=== PATIENT | male | born 1985 | race Caucasian/White ===

== ENCOUNTER 2023-01-08 07:59 | Inpatient (IN) | payer SELFPAY ==
[2023-01-08 08:00] VITALS: BMI 28.1
[2023-01-08 08:05] VITALS: BP 170/115; PULSE 98; RESP 16; TEMP 37.1; O2SAT 98
--- NOTE | 2023-01-08 08:24 | ED.C_ITS ---
Documented by User: ANUP Covarrubias 01/08/23 09:22 HPI - Psych General: Chief Complaint: Psychiatric Symptoms Stated Complaint: MHE Time Seen by Provider: 01/08/23 08:01 Source: patient and EMS Mode of arrival: ambulatory Limitations: no limitations History of Present Illness: Patient is a 37-year-old male with history of ADHD, PTSD, and generalized anxiety disorder who presents to the emergency department via EMS due to acute psychosis onset today. Per EMS, patient is traveling from [place] to [facility] to see his /ex-. Patient was stopping for gas in [place], where he states he got paranoid believing that the gas being pumped into his truck was diesel, and that this was a result of the feds following him for some time. He states that they were doing this in order for his truck to stop working so that he could not get to [place]. He caused such a scene at the gas station over this that the police were contacted. He reportedly has also been getting anxious when he sees vehicles colored white, as he thinks they are hunting him down. When talking to the patient, he tells me that he has a heightened sense of hearing where he can hear people from very far away. He states that these voices are real, and that they are not hallucinations and are not telling him to hurt himself or others. He currently denies any suicidal or homicidal ideations. He tells me that his ADHD has been out of control for the past couple of months, as he has been off of his stimulant medication. He reports history of being hospitalized in a psychiatric facility, though he will not tell me where or when the last time he was hospitalized. When asked why he is traveling to [place] to see his , he states that he also cannot tell me this and that this is something he will only discuss with satellite tv technician installer. He says he smokes a significant amount of cigarettes daily, but denies any use of recreational drugs or alcohol as he states they make him feel weird. He says he has experimented in the past with street drugs such as meth to treat his anxiety when he has been out a prescription medication. He tells me that all he needs is a sufficient supply of medications to get him to [place], and becomes agitated when asked about psychiatric hospitalization. He denies any chest pain, palpitations, self-injurious behavior, or any other symptoms at this time. complaint: other (Acute psychosis) Duration: constant History of same: Yes Relieving factors: medication Context: not taking psychiatric medications Associated symptoms: Reports delusions; Deny auditory hallucinations, visual hallucinations, depression, homicidal ideation or suicidal ideation Treatments prior to arrival: none Review of Systems Const: Denies: fever(s) or chills Card: Denies: chest pain, palpitations, lightheadedness or syncope Resp: Denies: dyspnea GI: Denies: abdominal pain, nausea, vomiting or diarrhea Skin/Breast: Denies: rash Neuro: Denies: headache(s) Psych: Reports: paranoia and other (Psychosis); Denies: anxiety, depression, visual hallucinations, auditory hallucinations, suicidal ideation or homicidal ideation Physical Exam Const: COMMON NORMALS: no acute distress, patient oriented x3, no limitations, alert and well nourished GENERAL APPEARANCE: cooperative and well kempt ORIENTATION/CONSCIOUSNESS: Yes awake, Yes oriented to person, Yes oriented to place and Yes oriented to time OTHER: paranoia Resp: COMMON NORMALS: normal respiratory effort and clear to auscultation bilaterally AUSCULTATION: clear to auscultation bilaterally Cardio: COMMON NORMALS: regular rate and regular rhythm RATE: regular rate RHYTHM: regular rhythm Neuro: NITIN COMA SCALE: document GCS findings [place] coma scale eye opening: Spontaneous [place] coma scale verbal response: Orientated [place] coma scale motor response: Obey commands [place] coma scale total score: 15 COMMON NORMALS: patient oriented x3 SENSORIUM/ORIENTATION: Yes alert, Yes oriented to person, Yes oriented to place and Yes oriented to time Psych: COMMON NORMALS: mental status grossly normal, cooperative, normal affect, speech normal, activity/motor behavior normal, denies homicidal ideation and denies suicidal ideation APPEARANCE: Yes grossly normal and Yes well kempt ATTITUDE: Yes agitated ACTIVITY/MOTOR BEHAVIOR: Yes appropriate eye contact and No psychomotor agitation SPEECH: Yes normal speech MOOD & AFFECT: Yes irritable THOUGHT PROCESS: Flight of ideas present THOUGHT CONTENT: Yes delusions Delusional thought content details: persecutory ATTENTION/CONCENTRATION: Yes attention grossly intact and Yes concentration grossly intact MEMORY/COGNITION: Yes memory grossly intact and Yes cognition grossly intact INSIGHT: Poor insight present (Psych) JUDGEMENT: questionable Course Consultations: Consultation #1: Dr. Beatty-recommended hospitalization as patient is acting on his delusions and could potentially be a threat to others because of this Vital Signs: Vital signs: Vital Signs Temperature 98.8 F 01/08/23 08:05 Pulse Rate 98 01/08/23 08:05 Respiratory Rate 16 01/08/23 08:05 Blood Pressure 170/115 01/08/23 08:05 Pulse Oximetry 98 01/08/23 08:05 Oxygen Delivery Me thod Room Air 01/08/23 08:05 MDM - Psych Medical Decision Making Patient is a 37-year-old male who presents to ED today after being brought by police for concerns of acute psychosis. On examination patient is clearly psychotic and paranoid. He is acting on his active delusions. At this time patient was placed on a 96-hour hold. He does have a service dog with him so we are speaking to [facility] on policy in regards to this. I have spoken to Dr. Beatty who recommends hospitalization. Dr. Cabrera aware of patient and has signed 96-hour hold paperwork. He will be an admit to NPU. Lab Data 01/08/23 08:39 01/08/23 08:39 Laboratory Results WBC 10.8 10^3/uL (4.0-10.0) H 01/08/23 08:39 RBC 4.65 10^6/uL (4.1-5.3) 01/08/23 08:39 Hgb 14.6 g/dL (11.7-16.6) 01/08/23 08:39 Hct 45.3 % (42.0-52.0) 01/08/23 08:39 MCV 97.4 fl (80-94) H 01/08/23 08:39 MCH 31.4 pg (28.0-34.0) 01/08/23 08:39 MCHC 32.2 g/dL (30.0-36.0) 01/08/23 08:39 RDW 14.1 % (12.1-15.1) 01/08/23 08:39 Plt Count 256 10^3/cmm (130-400) 01/08/23 08:39 MPV 11.6 fL (7.4-10.4) H 01/08/23 08:39 Neut % (Auto) 70.6 % 01/08/23 08:39 Lymph % (Auto) 20.1 % 01/08/23 08:39 [place] % (Auto) 7.7 % 01/08/23 08:39 Eos % (Auto) 0.6 % 01/08/23 08:39 Baso % (Auto) 0.7 % 01/08/23 08:39 Neut # (Auto) 7.65 10^3/uL (1.8-7.7) 01/08/23 08:39 Lymph # (Auto) 2.2 10^3/uL (0.8-4.8) 01/08/23 08:39 [place] # (Auto) 0.8 10^3/uL (0.2-0.9) 01/08/23 08:39 Eos # (Auto) 0.1 10^3/uL (0.0-0.8) 01/08/23 08:39 Baso # (Auto) 0.1 10^3/uL (0.0-0.1) 01/08/23 08:39 Nucleated RBC % (auto) 0 % 01/08/23 08:39 Nucleated RBCs # 0.0 /100WBC 01/08/23 08:39 Sodium 140 mmol/L (136-145) 01/08/23 08:39 Potassium 4.2 mmol/L (3.5-5.1) 01/08/23 08:39 Chloride 100 mmol/L (98-107) 01/08/23 08:39 Carbon Dioxide 27 mmol/L (22-29) 01/08/23 08:39 Anion Gap 17.2 (5-19) 01/08/23 08:39 BUN 7 mg/dL (6-20) 01/08/23 08:39 Creatinine 1.0 mg/dL (0.7-1.2) 01/08/23 08:39 GFR Calculation 83.6 mL/min (90-130) L 01/08/23 08:39 Glucose 105 mg/dL (65-115) 01/08/23 08:39 Calculated Osmolality 288 mOsm/kg (285-295) 01/08/23 08:39 Calcium 8.6 mg/dL (8.5-10.5) 01/08/23 08:39 Total Bilirubin 0.4 mg/dL (0.15-1.2) 01/08/23 08:39 AST 15 U/L (0-40) 01/08/23 08:39 ALT 15 U/L (0-41) 01/08/23 08:39 Alkaline Phosphatase 118 U/L (40-130) 01/08/23 08:39 Total Protein 7.2 g/dL (6.6-8.7) 01/08/23 08:39 Albumin 4.8 g/dL (3.5-5.2) 01/08/23 08:39 Globulin 2.4 g/dL (1.3-4.6) 01/08/23 08:39 Salicylates < 0.3 mg/dL (3-10) L 01/08/23 08:39 Acetaminophen < 5.0 ug/mL (10-30) L 01/08/23 08:39 Ethyl Alcohol < 10 mg/dL (0-10) 01/08/23 08:39 Discharge Plan Discharge Patient Disposition: Admitted As Inpatient Clinical Impression: Acute psychosis, Paranoia Condition: Stable Coding Level of Care Code ED Portfolio Administrator for Chg Fwd Documented by User: Gennaro Cabrera DO 01/08/23 10:47 HPI - Psych General: Chief Complaint: Psychiatric Symptoms Stated Complaint: MHE Time Seen by Provider: 01/08/23 08:01 Physical Exam Neuro: NITIN COMA SCALE: document GCS findings [place] coma scale total score: 15 Course Vital Signs: Vital signs: Vital Signs Temperature 98.8 F 01/08/23 08:05 Pulse Rate 98 01/08/23 08:05 Respiratory Rate 16 01/08/23 08:05 Blood Pressure 170/115 01/08/23 08:05 Pulse Oximetry 98 01/08/23 08:05 Oxygen Delivery Me thod Room Air 01/08/23 08:05 MDM - Psych Medical Decision Making Patient is a 37-year-old male who presents to ED today after being brought by police for concerns of acute psychosis. On examination patient is clearly psychotic and paranoid. He is acting on his active delusions. At this time anup austin was placed on a 96-hour hold. He does have a service dog with him so we are speaking to [facility] on policy in regards to this. I have spoken to Dr. Beatty who recommends hospitalization. Dr. Cabrera aware of patient and has signed 96-hour hold paperwork. He will be an admit to NPU. Patient seen and evaluated he is mildly agitated but easily redirected. We did give him a dose of Ativan which seemed to help although he still is resistant to changing out to scrub. Discussed with Dr. Beatty as well as administration regarding admission location due to the fact that he has a service dog with him and ultimately was decided to place him in the ICU where he can be monitored. Spencer arreguin is on a 96-hour hold. Orders written. Medical Records I reviewed the patient's medical records. Lab Data I reviewed the patient's lab results. 01/08/23 08:39 01/08/23 08:39 Laboratory Results WBC 10.8 10^3/uL (4.0-10.0) H 01/08/23 08:39 RBC 4.65 10^6/uL (4.1-5.3) 01/08/23 08:39 Hgb 14.6 g/dL (11.7-16.6) 01/08/23 08:39 Hct 45.3 % (42.0-52.0) 01/08/23 08:39 MCV 97.4 fl (80-94) H 01/08/23 08:39 MCH 31.4 pg (28.0-34.0) 01/08/23 08:39 MCHC 32.2 g/dL (30.0-36.0) 01/08/23 08:39 RDW 14.1 % (12.1-15.1) 01/08/23 08:39 Plt Count 256 10^3/cmm (130-400) 01/08/23 08:39 MPV 11.6 fL (7.4-10.4) H 01/08/23 08:39 Neut % (Auto) 70.6 % 01/08/23 08:39 Lymph % (Auto) 20.1 % 01/08/23 08:39 [place] % (Auto) 7.7 % 01/08/23 08:39 Eos % (Auto) 0.6 % 01/08/23 08:39 Baso % (Auto) 0.7 % 01/08/23 08:39 Neut # (Auto) 7.65 10^3/uL (1.8-7.7) 01/08/23 08:39 Lymph # (Auto) 2.2 10^3/uL (0.8-4.8) 01/08/23 08:39 [place] # (Auto) 0.8 10^3/uL (0.2-0.9) 01/08/23 08:39 Eos # (Auto) 0.1 10^3/uL (0.0-0.8) 01/08/23 08:39 Baso # (Auto) 0.1 10^3/uL (0.0-0.1) 01/08/23 08:39 Nucleated RBC % (auto) 0 % 01/08/23 08:39 Nucleated RBCs # 0.0 /100WBC 01/08/23 08:39 Sodium 140 mmol/L (136-145) 01/08/23 08:39 Potassium 4.2 mmol/L (3.5-5.1) 01/08/23 08:39 Chloride 100 mmol/L (98-107) 01/08/23 08:39 Carbon Dioxide 27 mmol/L (22-29) 01/08/23 08:39 Anion Gap 17.2 (5-19) 01/08/23 08:39 BUN 7 mg/dL (6-20) 01/08/23 08:39 Creatinine 1.0 mg/dL (0.7-1.2) 01/08/23 08:39 GFR Calculation 83.6 mL/min (90-130) L 01/08/23 08:39 Glucose 105 mg/dL (65-115) 01/08/23 08:39 Calculated Osmolality 288 mOsm/kg (285-295) 01/08/23 08:39 Calcium 8.6 mg/dL (8.5-10.5) 01/08/23 08:39 Total Bilirubin 0.4 mg/dL (0.15-1.2) 01/08/23 08:39 AST 15 U/L (0-40) 01/08/23 08:39 ALT 15 U/L (0-41) 01/08/23 08:39 Alkaline Phosphatase 118 U/L (40-130) 01/08/23 08:39 Total Protein 7.2 g/dL (6.6-8.7) 01/08/23 08:39 Albumin 4.8 g/dL (3.5-5.2) 01/08/23 08:39 Globulin 2.4 g/dL (1.3-4.6) 01/08/23 08:39 Salicylates < 0.3 mg/dL (3-10) L 01/08/23 08:39 Acetaminophen < 5.0 ug/mL (10-30) L 01/08/23 08:39 Ethyl Alcohol < 10 mg/dL (0-10) 01/08/23 08:39 Discharge Plan Discharge Patient Disposition: Admitted As Inpatient Clinical Impression: Acute psychosis, Paranoia Condition: Stable Coding Level of Care Code ED Portfolio Administrator for Fareed Alejandro
[2023-01-08 08:48] LABS: Basophils # 0.1 10^3/uL (0.0-0.1); Basophils % 0.7 %; Eosinophils # 0.1 10^3/uL (0.0-0.8); Eosinophils % 0.6 %; Hematocrit 45.3 % (42.0-52.0); Hemoglobin 14.6 g/dL (11.7-16.6); Lymphocytes # 2.2 10^3/uL (0.8-4.8); Lymphocytes % 20.1 %; Mean Corpuscular HGB Conc 32.2 g/dL (30.0-36.0); Mean Corpuscular Hemoglobin 31.4 pg (28.0-34.0); Mean Corpuscular Volume 97.4 fl (80-94); Mean Platelet Volume 11.6 fL (7.4-10.4); Monocytes # 0.8 10^3/uL (0.2-0.9); Monocytes % 7.7 %; Neutrophils # 7.65 10^3/uL (1.8-7.7); Neutrophils % 70.6 %; Nucleated Red Blood Cells % 0 %; Platelet Count 256 10^3/cmm (130-400); Red Blood Count 4.65 10^6/uL (4.1-5.3); Red Cell Distribution Width 14.1 % (12.1-15.1); White Blood Count 10.8 10^3/uL (4.0-10.0)
[2023-01-08 09:11] LABS: Alanine Aminotransferase 15 U/L (0-41); Albumin Level 4.8 g/dL (3.5-5.2); Alkaline Phosphatase 118 U/L (40-130); Anion Gap 17.2 (5-19); Aspartate Amino Transferase 15 U/L (0-40); Blood Urea Nitrogen 7 mg/dL (6-20); Calcium 8.6 mg/dL (8.5-10.5); Carbon Dioxide 27 mmol/L (22-29); Chloride 100 mmol/L (98-107); Globulin 2.4 g/dL (1.3-4.6); Glomerular Filtration Rate 83.6 mL/min (90-130); Glucose 105 mg/dL (65-115); Osmolality Calculated 288 mOsm/kg (285-295); Potassium 4.2 mmol/L (3.5-5.1); Sodium 140 mmol/L (136-145); Total Bilirubin 0.4 mg/dL (0.15-1.2); Total Protein 7.2 g/dL (6.6-8.7)
[2023-01-08 09:14] LABS: Acetaminophen < 5.0 ug/mL (10-30); Alcohol Level < 10 mg/dL (0-10); Salicylate < 0.3 mg/dL (3-10)
[2023-01-08] MEDS: LORazepam 2 mg Tablet PO (09:22)
[2023-01-08 11:11] VITALS: BP 128/74; PULSE 83; RESP 18; O2SAT 93
--- NOTE | 2023-01-08 11:12 | PC.NURSE ---
PT NOTED TO SUDDENLY BE SLEEPING IN BED. PT NOT ALERTLY RESPONDING TO VERBAL/PHYSICAL STIMUI. V/S OBTAINED. PT UNDRESSED TO PLACE IN SCRUBS. PT AROUSED.
--- NOTE | 2023-01-08 13:25 | PC.NURSE ---
This nurse expressed concern for safety of staff and patient to nurse Admin prior to receiving patient. patient arrived from ED approximately 1240. Patient is now strongly requesting to leave and needing anxiety meds, Dr. Beatty notified
--- NOTE | 2023-01-08 13:29 | PC.NURSE ---
patient refusing telemetry and VS
[2023-01-08 13:30] VITALS: BP 129/79; PULSE 96; O2SAT 93
[2023-01-08] MEDS: nicotine 2 mg Gum 4 MG BUCCAL ×4 (14:35→23:55)
--- NOTE | 2023-01-08 14:36 | PC.NURSE ---
Patient refuses to wear name band
--- NOTE | 2023-01-08 15:29 | PC.NURSE ---
Patient requested to take dog outside. Security came to bedside. patient threatening to lexy hospital and staff due to being held against his will, and that he will leave because he doesn't want to get violent but will if needed. attempted to contact HCP
--- NOTE | 2023-01-08 15:37 | PC.NURSE ---
Patient demanded law enforcement be called, security made the call, security and law enforcement with patient at this time
--- NOTE | 2023-01-08 16:04 | PC.NURSE ---
patient off unit with security and law enforcement
--- NOTE | 2023-01-08 17:29 | W.PM.NPUH&PS ---
Providers/Chief Complaint Admitting Physician: Thang Beatty MD Chief Complaint: MHE HPI NPU History of Present Illness Laz Villegas is a 37 year old male who presented to the emergency department with the following report: Chief Complaint: Psychiatric Symptoms Stated Complaint: MHE Time Seen by Provider: 01/08/23 08:01 Source: patient and EMS Mode of arrival: ambulatory Limitations: no limitations History of Present Illness: Patient is a 37-year-old male with history of ADHD, PTSD, and generalized anxiety disorder who presents to the emergency department via EMS due to acute psychosis onset today. Per EMS, patient is traveling from [place] to [facility] to see his /ex-. Patient was stopping for gas in [employer], where he states he got paranoid believing that the gas being pumped into his truck was diesel, and that this was a result of the feds following him for some time. He states that they were doing this in order for his truck to stop working so that he could not get to [place]. He caused such a scene at the gas station over this that the police were contacted. He reportedly has also been getting anxious when he sees vehicles colored white, as he thinks they are hunting him down. When talking to the patient, he tells me that he has a heightened sense of hearing where he can hear people from very far away. He states that these voices are real, and that they are not hallucinations and are not telling him to hurt himself or others. He currently denies any suicidal or homicidal ideations. He tells me that his ADHD has been out of control for the past couple of months, as he has been off of his stimulant medication. He reports history of being hospitalized in a psychiatric facility, though he will not tell me where or when the last time he was hospitalized. When asked why he is traveling to [place] to see his , he states that he also cannot tell me this and that this is something he will only discuss with environmental geologist. He says he smokes a significant amount of cigarettes daily, but denies any use of recreational drugs or alcohol as he states they make him feel weird. He says he has experimented in the past with street drugs such as meth to treat his anxiety when he has been out a prescription medication. He tells me that all he needs is a sufficient supply of medications to get him to [place], and becomes agitated when asked about psychiatric hospitalization. He denies any chest pain, palpitations, self-injurious behavior, or any other symptoms at this time. MD complaint: other (Acute psychosis) Duration: constant History of same: Yes Relieving factors: medication Context: not taking psychiatric medications Associated symptoms: Reports delusions; Deny auditory hallucinations, visual hallucinations, depression, homicidal ideation or suicidal ideation Treatments prior to arrival: none. The patient was admitted to the neuropsychiatric unit for definitive treatment of those issues. The patient reports that he has been taking Adderall and Xanax, prescribed by Rosa Toro from [facility] in [place], [place]. He reports that he has been seeing her for a while. The patient states that he was brought here for ?that,? but everything has been misconstrued, about what he needed, and they have given him the wrong medication, and he stated that now he doesn?t care about the medication he just wants to go get in his truck. Ultimately he reported that he got here because his truck was acting up, and he broke down and was scared. When asked to elaborate about how that led to him ending up in the hospital, he stated that he didn?t want to be in the hospital like this, the police lied to the people when he told them that he just needs a checkup and to get some pills that he hasn?t had in a while, and he heard their conversations. When asked about how he heard, the patient attributed that to his ADHD. He reports that people/the police saw him in distress, pulled up to his truck on the side of the road, and they put him here thinking he needed help. The patient reports that he has had a few previous psychiatric hospitalizations, stating the last time was probably a couple months ago. He reports that he thought people were after him, he was having paranoia. He reports that he has PTSD and has breakdowns, stating he doesn?t have to go to the hospital or to halfway every time he has a breakdown. He reports that sounds can make him have a breakdown. He reports that he smokes about two packs a day. He denies alcohol or marijuana use. He denies any other illicit drug use. But endorses that he has used cocaine, in the past. He denies drug rehabilitation, DUI, or drug related charges. He reports that his PTSD is from being in the , from 2002 to 2005. He was in the [employer]. He reports that he started medication for ADHD about 10 years ago. He reports that he usually takes Adderall extended release, about 45 mg, 20 mg in the morning and 20 to 25 mg in the afternoon, before noon. And Xanax 1 mg, 1 to 2 a day, at night as needed. He reports that he has been out of his medication for two to three months. The patient reports that he was on his way to [place] because of some legal issues that he had to go there to take care of. We discussed that he has been put on a 96-hour hold. He denies any suicidal history or self-injurious behavior. He denies depression. He endorses that his anxiety manifests with physical symptoms. PSYCHIATRIC HISTORY: As above. SUBSTANCE ABUSE HISTORY: As above. FAMILY HISTORY: DEVELOPMENTAL HISTORY: PSYCHOSOCIAL HISTORY: The patient reports that he has been three times. He reports that he has ten children, from five different mothers. His youngest is 2 years old and the oldest is 18 to 19 years old. 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 He reports that he is currently disabled and reports he is unemployable. The patient reports that he currently lives in [place], in a camper, with his common-law , out of [place]. LEGAL HISTORY: He denies current legal issues. MEDICAL HISTORY: The patient denies any known allergies to medications. Meds NPU Home Medications Medication Instructions Recorded Confirmed Last Taken Type No Known Home Medications 01/08/23 01/08/23 Unknown History Allergies Allergy/AdvReac Type Severity Reaction Status Date / Time No Known Allergies Allergy Verified 01/08/23 09:22 Mental Status Exam MSE Comments: This is a well-nourished well-developed white male, in hospital scrubs, with adequate grooming and eye contact. Service dog on the bed with him. No abnormal movements except mild psychomotor retardation. Semi-cooperative with exam in mild distress. Speech was normal rate and volume. Mood described as ?fine if I could just get out of here, frustrated?; affect congruent. Thought process, organized. Thought content: patient denied any suicidal or homicidal ideation, there were no delusions reported but paranoia and/or persecutory delusions noted, patient denied any auditory or visual hallucinations. Attention, concentration, and memory appeared intact, but none were formally tested. Alert and oriented times three. Insight and judgment are limited. Impulse control is impaired. Vitals/I&O/Wt Last Vital Signs Temp 98.8 F 01/08/23 08:05 Pulse 96 01/08/23 13:30 Resp 18 01/08/23 11:11 BP 129/79 01/08/23 13:30 Pulse Ox 93 01/08/23 13:30 O2 Del Method Room Air 01/08/23 13:30 01/08/23 01/09/23 01/09/23 22:59 06:59 14:59 Intake Total 724 / 724 0 / 724 Balance 724 / 724 0 / 724 Weight last 48 hrs Weight 83.915 kg Data NPU 01/08/23 08:39 01/08/23 08:39 A&P Assessment and plan (1) Acute psychosis: (2) Paranoia: Plan This is a 37 -year-old, white male, with a history of mental health issues, who presents on a 96-hour hold, secondary to an interaction with police who then brought him to the hospital with concerns for his mental health/paranoia. 1. Continue current medication. 2. Encourage individual, group, and milieu therapy. 3. Continue q-15-minute checks for safety. 4. Recommend sober living treatment at the highest level of care to which the patient is willing to commit. He charge that started vet I would really be obviously need to get it to placing callus what it will not Attestations NPU Medical Necessity Statement*: Inpatient hospitalization is medically necessary and the clinically appropriate intervention, at this time. We will monitor medications and make changes as indicated. Patient will be in the hospital for over two midnights. Likely length of stay is three to five days. Coding Level of Care Code Acute Code for [facility] F[facility] Diagnoses Acute psychosis F23 Paranoia F22
--- NOTE | 2023-01-08 19:54 | PC.NURSE ---
Patient standing in hallway and cussing/pacing in doorway. Security called to bring presence to the unit. Patient instructed in regards to reason for 96hr hold. Patient repeatedly asked if he was being arrested. Patient reoriented to situation. Patient has been asked to remain inside room and to remain calm and keep voice down due to concerns for other patient's and their families.
[2023-01-08] MEDS: hyDROXYzine 25 mg Capsule 50 MG PO (23:55)
--- NOTE | 2023-01-09 00:57 | PC.NURSE ---
Patient's dog appeared restless and needing to use restroom. Patient was awakened after Family Consumer Science F[employer] Teacher and security arrived to help assist in walking dog in secured court yard. Patient was calm and cooperative in this process. Meds were offered to patient and most were refused with exception of vistaril and nicorette. Patient resting comfortably at this time.
[2023-01-09] MEDS: nicotine 2 mg Gum 4 MG BUCCAL ×6 (07:09→20:01)
--- NOTE | 2023-01-09 07:29 | W.PM.NPUPNS ---
Subjective NPU Subjective: Patient presented today reporting that he is feeling okay. He reports feeling much better now that he has had some sleep. We discussed his plan which has not changed to ultimately get to [place]. He reports that his brother has sent him some money via [employer] and that he plans on driving a little further probably getting some work and ultimately continuum onto some challenges he reports he has in [place] that cannot be ignored. He continues to endorse some thoughts that are some baseline paranoia but not creating any adverse circumstances through those thoughts. We discussed evaluating him in the morning and considering discharge and assisting him in getting back to his truck. Mental Status Exam MSE Comments: This is a well-nourished well-developed white male, in hospital scrubs, with adequate grooming and eye contact. Service dog on the bed. No abnormal movements except mild psychomotor retardation. Cooperative with exam in no acute distress. Speech was normal rate and volume. Mood described as better; affect congruent. Thought process, organized. Thought content: patient denied any suicidal or homicidal ideation, there were no delusions reported but limited paranoia and/or persecutory delusions noted, patient denied any auditory or visual hallucinations. Attention, concentration, and memory appeared intact, but none were formally tested. Alert and oriented times three. Insight and judgment are limited, but improving. Impulse control is limited. Vitals/I&O/Wt Last Vital Signs Temp 98.8 F 01/08/23 08:05 Pulse 96 01/08/23 13:30 Resp 18 01/08/23 11:11 BP 129/79 01/08/23 13:30 Pulse Ox 93 01/08/23 13:30 O2 Del Method Room Air 01/08/23 13:30 01/08/23 01/09/23 01/09/23 22:59 06:59 14:59 Intake Total 724 / 724 0 / 724 Balance 724 / 724 0 / 724 Weight last 48 hrs Weight 83.915 kg Data NPU 01/08/23 08:39 01/08/23 08:39 A&P Assessment and plan (1) Acute psychosis: (2) Paranoia: Plan This is a 37 -year-old, white male, with a history of mental health issues, who presents on a 96-hour hold, secondary to an interaction with police who then brought him to the hospital with concerns for his mental health/paranoia. 1. Continue current medication. 2. Encourage individual, group, and milieu therapy. 3. Continue q-15-minute checks for safety. 4. Recommend sober living treatment at the highest level of care to which the patient is willing to commit. 5. Observe him for safety in relation to the 96-hour hold. At this point he does seem to have some paranoia which has improved significantly with just a good night sleep. We will evaluate him in the morning and if he continues to function at this level we will out of the discharge. 6. We will have social work call the [facility] police and see if we can get his keys and try to get him a ride to where his vehicle is. Attestations NPU Medical Necessity Statement*: Inpatient hospitalization is medically necessary and the clinically appropriate intervention, at this time. We will monitor medications and make changes as indicated. Likely length of stay is 1-3 days. Coding Level of Care Code Acute Code for [facility] Diagnoses Acute psychosis F23 Paranoia F22
--- NOTE | 2023-01-09 08:08 | PC.OT ---
OT EVALUATION ORDERS RECEIVED. HOLD OT EVALUATION AT THIS TIME PATIENT IS CURRENTLY IN ICU; WILL ATTEMPT EVALUATION WHEN TRANSFERRED TO NPU
--- NOTE | 2023-01-09 08:42 | PC.NURSE ---
patient agitated about 96 hour hold, able to calm at this time, refused PRN meds
[2023-01-09] MEDS: hyDROXYzine 25 mg Capsule 50 MG PO ×2 (12:35→20:19)
[2023-01-09] MEDS: nicotine 2 mg Gum BUCCAL ×2 (12:36→19:10)
[2023-01-09 14:00] VITALS: BP 128/64
--- NOTE | 2023-01-09 17:54 | PC.NURSE ---
Shift Summary: continues to refuse patient ID and arm bands, refuses VS, has been calm majority of day reorients when agitated, uneventful shift, House sup and security escorted patient to walk dog PRN
[2023-01-09] MEDS: ibuprofen 600 mg Tablet PO (19:08)
[2023-01-09] MEDS: OLANZapine 5 mg ODT PO (20:19)
[2023-01-10] MEDS: nicotine 2 mg Gum 4 MG BUCCAL ×4 (06:49→12:12)
--- NOTE | 2023-01-10 08:35 | PC.NURSE ---
Cell phone, Patient allowed to use cell phone with supervision of this nurse.
--- NOTE | 2023-01-10 09:38 | PC.NURSE ---
Patient and service animal escorted by myself and security to designated area for dog outside of facility and allowed service animal to walk around and go to the bathroom.
--- NOTE | 2023-01-10 10:29 | PC.NURSE ---
Snack Patient requesting a snack. Patient ambulated to get a snack, accompanied by this nurse and patient's service dog.
--- NOTE | 2023-01-10 11:51 | W.PM.NPUDCS ---
Diagnoses at Discharge Discharge Diagnosis (1) Acute psychosis: Status: Acute (2) Paranoia: Status: Acute Reason for Visit Reason for Visit: MHE Brief History: History of Present Illness Laz Villegas is a 37 year old male who presented to the emergency department with the following report: Chief Complaint: Psychiatric Symptoms Stated Complaint: MHE Time Seen by Provider: 01/08/23 08:01 Source: patient and EMS Mode of arrival: ambulatory Limitations: no limitations History of Present Illness: ? Patient is a 37-year-old male with history of ADHD, PTSD, and generalized anxiety disorder who presents to the emergency department via EMS due to acute psychosis onset today.? Per EMS, patient is traveling from [place] to [facility] to see his /ex-.? Patient was stopping for gas in [employer], where he states he got paranoid believing that the gas being pumped into his truck was diesel, and that this was a result of the feds following him for some time.? He states that they were doing this in order for his truck to stop working so that he could not get to [place]. He caused such a scene at the gas station over this that the police were contacted. He reportedly has also been getting anxious when he sees vehicles colored white, as he thinks they are hunting him down. ? When talking to the patient, he tells me that he has a heightened sense of hearing where he can hear people from very far away.? He states that these voices are real, and that they are not hallucinations and are not telling him to hurt himself or others.? He currently denies any suicidal or homicidal ideations.? He tells me that his ADHD has been out of control for the past couple of months, as he has been off of his stimulant medication.? He reports history of being hospitalized in a psychiatric facility, though he will not tell me where or when the last time he was hospitalized.? 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 He says he smokes a significant amount of cigarettes daily, but denies any use of recreational drugs or alcohol as he states they make him feel weird.? He says he has experimented in the past with street drugs such as meth to treat his anxiety when he has been out a prescription medication.? He tells me that all he needs is a sufficient supply of medications to get him to [place], and becomes agitated when asked about psychiatric hospitalization.? He denies any chest pain, palpitations, self-injurious behavior, or any other symptoms at this time. ? MD complaint: other (Acute psychosis) Duration: constant History of same: Yes Relieving factors: medication Context: not taking psychiatric medications Associated symptoms: Reports delusions; Deny auditory hallucinations, visual hallucinations, depression, homicidal ideation or suicidal ideation Treatments prior to arrival: none. The patient was admitted to the neuropsychiatric unit for definitive treatment of those issues. The patient reports that he has been taking Adderall and Xanax, prescribed by Rosa Toro from [facility] in [place], [place]. He reports that he has been seeing her for a while. The patient states that he was brought here for ?that,? but everything has been misconstrued, about what he needed, and they have given him the wrong medication, and he stated that now he doesn?t care about the medication he just wants to go get in his truck. Ultimately he reported that he got here because his truck was acting up, and he broke down and was scared. When asked to elaborate about how that led to him ending up in the hospital, he stated that he didn?t want to be in the hospital like this, the police lied to the people when he told them that he just needs a checkup and to get some pills that he hasn?t had in a while, and he heard their conversations. When asked about how he heard, the patient attributed that to his ADHD. He reports that people/the police saw him in distress, pulled up to his truck on the side of the road, and they put him here thinking he needed help. The patient reports that he has had a few previous psychiatric hospitalizations, stating the last time was probably a couple months ago. He reports that he thought people were after him, he was having paranoia. He reports that he has PTSD and has breakdowns, stating he doesn?t have to go to the hospital or to penitentiary every time he has a breakdown. He reports that sounds can make him have a breakdown. He reports that he smokes about two packs a day. He denies alcohol or marijuana use. He denies any other illicit drug use. But endorses that he has used cocaine, in the past. He denies drug rehabilitation, DUI, or drug related charges. He reports that his PTSD is from being in the , from 2002 to 2005. He was in the [employer]. He reports that he started medication for ADHD about 10 years ago. He reports that he usually takes Adderall extended release, about 45 mg, 20 mg in the morning and 20 to 25 mg in the afternoon, before noon. And Xanax 1 mg, 1 to 2 a day, at night as needed. He reports that he has been out of his medication for two to three months. The patient reports that he was on his way to [place] because of some legal issues that he had to go there to take care of. We discussed that he has been put on a 96-hour hold. He denies any suicidal history or self-injurious behavior. He denies depression. He endorses that his anxiety manifests with physical symptoms. PSYCHIATRIC HISTORY: As above. SUBSTANCE ABUSE HISTORY: As above.? FAMILY HISTORY: DEVELOPMENTAL HISTORY: PSYCHOSOCIAL HISTORY: The patient reports that he has been three times. He reports that he has ten children, from five different mothers. His youngest is 2 years old and the oldest is 18 to 19 years old. He reports that he is a Jew. He reports that he is currently disabled and reports he is unemployable. The patient reports that he currently lives in [place], in a camper, with his common-law , out of [place]. LEGAL HISTORY: He denies current legal issues. MEDICAL HISTORY: The patient denies any known allergies to medications. Hospital Course Hospital Course He quickly acclimated to the individual, group and milieu therapies provided.??He presented having had significant significant psychosocial stressors related to being arrested by the police and having his car possibly impounded. He presented with psychosis and was initially resistant to restarting medication but eventually allowed Vistaril and Zyprexa to be started. He was kept in the ICU secondary to having a service animal and due to different issues the ICU bed by the door provided the best solution in the hospital to assist him and allow him to keep a service animal was to be evaluated for safety. He had daily improvements and was able to manage his frustration with being hospitalized and showed improvement in his psychosis with the medication. He was interviewed extensively and had no signs of credible lethality given the concerns of the 96-hour hold.? He was able to work with the social work team to get his keys to his car and get to his vehicle and had significant improvement during his stay and was able to contract for safety outside of the hospital prior to discharge.? During the hospitalization, patient had routine laboratory studies which were within normal limits except for few outliers.? Additionally there was a general medical evaluation which was also within normal limits and revealed no new acute processes. At the time of discharge, he denied psychosis or lethality.? Mood and anxiety were well managed.? Patient endorsed a plan to avoid all drugs of abuse and follow-up with the aftercare recommendations of the treatment team.? Patient was evaluated and deemed to be absent credible lethality, and had achieved the maximum benefit from an inpatient hospitalization, so was discharged.? Mental Status Exam MSE Comments: This is a well-nourished well-developed white male, in hospital scrubs, with adequate grooming and eye contact. Service dog on the bed with him. No abnormal movements except mild psychomotor retardation. Cooperative with exam in mild distress. Speech was normal rate and volume. Mood described as okay, glad to go; affect congruent. Thought process, organized. Thought content: patient denied any suicidal or homicidal ideation, there were no delusions reported but paranoia and/or persecutory delusions noted, patient denied any auditory or visual hallucinations. Attention, concentration, and memory appeared intact, but none were formally tested. Alert and oriented times three. Insight and judgment are limited. Impulse control is impaired. Discharge Data Studies Completed and Pending: Pending at discharge Category Date Time Status Drug Screen, Urin e Stat Lab 01/08/23 08:22 Uncollected Laboratory Results WBC 10.8 10^3/uL (4.0 -10.0) H 01/08/23 08:39 RBC 4.65 10^6/uL (4.1 -5.3) 01/08/23 08:39 Hgb 14.6 g/dL (11.7-1 6.6) 01/08/23 08:39 Hct 45.3 % (42.0-52.0 ) 01/08/23 08:39 MCV 97.4 fl (80-94) H 01/08/23 08:39 MCH 31.4 pg (28.0-34. 0) 01/08/23 08:39 MCHC 32.2 g/dL (30.0-3 6.0) 01/08/23 08:39 RDW 14.1 % (12.1-15.1 ) 01/08/23 08:39 Plt Count 256 10^3/cmm (130 -400) 01/08/23 08:39 MPV 11.6 fL (7.4-10.4 ) H 01/08/23 08:39 Neut % (Auto) 70.6 % 01/08/23 08:39 Lymph % (Auto) 20.1 % 01/08/23 08:39 [place] % (Auto) 7.7 % 01/08/23 08:39 Eos % (Auto) 0.6 % 01/08/23 08:39 Baso % (Auto) 0.7 % 01/08/23 08:39 Neut # (Auto) 7.65 10^3/uL (1.8 -7.7) 01/08/23 08:39 Lymph # (Auto) 2.2 10^3/uL (0.8- 4.8) 01/08/23 08:39 [place] # (Auto) 0.8 10^3/uL (0.2- 0.9) 01/08/23 08:39 Eos # (Auto) 0.1 10^3/uL (0.0- 0.8) 01/08/23 08:39 Baso # (Auto) 0.1 10^3/uL (0.0- 0.1) 01/08/23 08:39 Nucleated RBC % (a uto) 0 % 01/08/23 08:39 Nucleated RBCs # 0.0 /100WBC 01/08/23 08:39 Sodium 140 mmol/L (136-1 45) 01/08/23 08:39 Potassium 4.2 mmol/L (3.5-5 .1) 01/08/23 08:39 Chloride 100 mmol/L (98-10 7) 01/08/23 08:39 Carbon Dioxide 27 mmol/L (22-29) 01/08/23 08:39 Anion Gap 17.2 (5-19) 01/08/23 08:39 BUN 7 mg/dL (6-20) 01/08/23 08:39 Creatinine 1.0 mg/dL (0.7-1. 2) 01/08/23 08:39 GFR Calculation 83.6 mL/min (90-1 30) L 01/08/23 08:39 Glucose 105 mg/dL (65-115 ) 01/08/23 08:39 Calculated Osmolal ity 288 mOsm/kg (285- 295) 01/08/23 08:39 Calcium 8.6 mg/dL (8.5-10 .5) 01/08/23 08:39 Total Bilirubin 0.4 mg/dL (0.15-1 .2) 01/08/23 08:39 AST 15 U/L (0-40) 01/08/23 08:39 ALT 15 U/L (0-41) 01/08/23 08:39 Alkaline Phosphata se 118 U/L (40-130) 01/08/23 08:39 Total Protein 7.2 g/dL (6.6-8.7 ) 01/08/23 08:39 Albumin 4.8 g/dL (3.5-5.2 ) 01/08/23 08:39 Globulin 2.4 g/dL (1.3-4.6 ) 01/08/23 08:39 Salicylates < 0.3 mg/dL (3-10 ) L 01/08/23 08:39 Acetaminophen < 5.0 ug/mL (10-3 0) L 01/08/23 08:39 Ethyl Alcohol < 10 mg/dL (0-10) 01/08/23 08:39 Vitals: Last Vital Signs Temp 98.8 F 01/08/23 08:05 Pulse 96 01/08/23 13:30 Resp 18 01/08/23 11:11 BP 128/64 01/09/23 14:00 Pulse Ox 93 01/08/23 13:30 O2 Del Method Room Air 01/08/23 13:30 Discharge Plan Discharge Patient Disposition: Home Condition: Stable Prescriptions: New Zyprexa 5 mg tablet 5 mg PO QPM 30 Days Qty: 30 1RF hydroxyzine pamoate 25 mg Capsule 50 mg PO Q6H PRN (Reason: Anxiety) 30 Days Qty: 120 1RF No Action No Known Home Medications Discharge Orders: Discharge Order (Routine); Ordered 01/10/23 Ordered By: Thang Beatty Referrals: doctor [Other] (Laz will need to find Primary care physican to follow up /patient out of state travelling to another state unknown destination /unknown primary care physican ) Discharge Diet: Regular Discharge Activity: Resume usual activity Patient Instructions: Hydroxyzine (By mouth) (Vistaril), Olanzapine (By mouth) (Zyprexa, Zyprexa Zydis), Paranoid Personality Disorder (DC), Psychotic Disorder (DC), Opioid Safety, Pain Management Discharge Attestations NPU Time Spent in Discharge Care*: less than 30 min Specific Discharge Activities: Specific discharge activities: educating patient, discussing with casework manager/social workers/dc planners, documenting/other paperwork and evaluating patient/reviewing data Coding Level of Care Code Acute Chg FW DC note Diagnoses Acute psychosis F23 Paranoia F22
[2023-01-10 11:53] VITALS: BP 150/96; PULSE 87; RESP 20; O2SAT 100
--- NOTE | 2023-01-10 12:29 | PC.NURSE ---
1:1 discontinued, 96 hour hold re-sended. Discharge instructions given to patient, medications brought to bedside. access services representative has arranged a ride with [employer] and they will take the patient to the police department to get his keys and from there to his vehicle.
--- NOTE | 2023-01-10 12:34 | PC.NURSE ---
Belongings given to patient. No discrepancies per the patient.
--- NOTE | 2023-01-10 13:43 | PC.NURSE ---
Patient and belongings ambulated to [employer] ride at front enterance. Service dog with patient. No further questions.
== END 2023-01-10 13:30 | disposition home or self-care (01) | DRG 885 ==
LOC: ER 11:07 → ICU 12:15
PROVIDERS: Admitting Provider Psychiatry & Neurology Psychiatry; Emergency Provider Physician Assistant; Visit Provider Psychiatry & Neurology Psychiatry
DX: F23 Brief psychotic disorder (principal); F90.9 Attention-deficit hyperactivity disorder, unspecified type; F43.10 Post-traumatic stress disorder, unspecified; F41.1 Generalized anxiety disorder; F22 Delusional disorders; F17.210 Nicotine dependence, cigarettes, uncomplicated
CPT/HCPCS: 36415; 80053; 80307; 85025; 99285